=== PATIENT | male | born 1990 ===

== ENCOUNTER 2017-01-04 12:24 | Emergency (ER) | payer MEDICAID ==
[2017-01-04 12:24] VITALS: BMI 38.6
[2017-01-04 12:43] VITALS: BP 141/86; PULSE 59; RESP 16; TEMP 99.1; O2SAT 99
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
--- NOTE | 2017-01-04 17:36 | RAD ---
PROCEDURE: Radiographs of the right elbow. HISTORY: injury COMPARISON: No prior. FINDINGS: BONES: Normal. No fracture. JOINTS: Normal. No osteoarthritis. SOFT TISSUES: Normal. JOINT EFFUSION: None. OTHER FINDINGS: None. IMPRESSION: Unremarkable radiographs of the right elbow. If pain persists consider followup MRI.
== END 2017-01-04 15:40 | disposition home or self-care (01) ==
LOC: H.ER 12:24
DX: S50.311A Abrasion of right elbow, initial encounter (principal); W19.XXXA Unspecified fall, initial encounter; Y92.89 Other specified places as the place of occurrence of the external cause